=== PATIENT | male | born 1995 | race Caucasian/White ===

== ENCOUNTER 2020-01-13 19:11 | Emergency (ER) | payer OTHER, MEDICAID ==
[~2020-01-13] VITALS: Ht 175.3 cm; Wt 72.6 kg
--- NOTE | 2020-01-13 19:26 | NUR ---
at bedside for MSE
[2020-01-13] MEDS ORDERED: LIDOCAINE HCL 1% 20 ML VIAL IJ ONE (19:30)
[2020-01-13] MEDS ORDERED: BACITRACIN OPHT OINT 3.5 GM TUBE ONE (19:53)
--- NOTE | 2020-01-13 20:00 | NUR ---
Patients left ear presented with MD william performed needle aspirated of left ear, left dressed with bacitracin, cotton balls, pressure gauze dressing, bordered gauze dressing and a head wrap to enforce.
--- NOTE | 2020-01-13 20:12 | NUR ---
Patient discharged to home in stable condition. Ambulated well with steady gait, took all belongings. Written and verbal after care instructions given. Given information on substance abuse reources, patient accepted resources, denies being homeless. No signs of distress noted, no complaints of pain. Patient verbalizes understanding of instructions. Stressed follow up or return to ER for worsening s/s.
[2020-01-13 20:22] VITALS: BP 125/61
[2020-01-13] MEDS ORDERED: BACITRACIN OPHT OINT 3.5 GM TUBE OP ONE (21:15)
== END 2020-01-13 20:07 | disposition home or self-care (01) ==
LOC: ER 19:11
DX: S00.432A Contusion of left ear, initial encounter (principal); X58.XXXA Exposure to other specified factors, initial encounter; Y92.89 Other specified places as the place of occurrence of the external cause; F15.10 Other stimulant abuse, uncomplicated
CPT/HCPCS: 10160; 99284; J3490; A4217; A4663; J3590